=== PATIENT | female | born 1950 | race Caucasian/White ===

== ENCOUNTER 2021-10-11 21:22 | Inpatient (IN) | payer MEDICARE, OTHER ==
[~2021-10-11] VITALS: Ht 157.5 cm; Wt 42.6 kg
[2021-10-11] MEDS ORDERED: IPRATROPIUM BROMIDE 0.5 MG/2.5 ML NEBU NEB ONE (21:30)
[2021-10-11] MEDS ORDERED: ALBUTEROL SULFATE 2.5 MG/3 ML NEBU NEB ONE (21:30)
[2021-10-11] MEDS ORDERED: methylPREDNISolone SOD SUCC 125 MG/2 ML VIAL IV ONE (21:30)
--- NOTE | 2021-10-11 21:32 | NUR ---
BIB RA 39 [place] SOB on 15L. Pt now on 2L NC satting at 98%. No distress noted.
[2021-10-11] MEDS ORDERED: ALBU8.5H8 INH (21:35)
[2021-10-11] MEDS ORDERED: ONDA4TAB5 PO (21:39)
[2021-10-11] MEDS ORDERED: MULT-594 PO (21:39)
[2021-10-11] MEDS ORDERED: HYDR-894 PO (21:39)
[2021-10-11] MEDS ORDERED: CYAN100T44 PO (21:39)
[2021-10-11] MEDS ORDERED: FLUT1BLS6 IH (21:39)
[2021-10-11] MEDS ORDERED: ACET250T3 PO (21:39)
[2021-10-11] MEDS ORDERED: FAMO20TA8 PO (21:39)
[2021-10-11] MEDS ORDERED: CALC-764 PO (21:39)
[2021-10-11] MEDS ORDERED: SILD50TA PO (21:39)
[2021-10-11] MEDS ORDERED: POTA10CA43 PO (21:39)
[2021-10-11] MEDS ORDERED: ALBUTEROL SULFATE 2.5 MG/3 ML NEBU ONE ×2 (21:39→22:51)
[2021-10-11] MEDS ORDERED: IPRATROPIUM BROMIDE 0.5 MG/2.5 ML NEBU ONE (21:39)
[2021-10-11] MEDS ORDERED: IV NORMAL SALINE 1000 ML BAG IV ONE (21:45)
--- NOTE | 2021-10-11 21:50 | NUR ---
RT at bedside administering nebulizer treatment and doing ABG
[2021-10-11] MEDS ORDERED: methylPREDNISolone SOD SUCC 125 MG/2 ML VIAL ONE (21:51)
[2021-10-11 22:03] LABS: CARBON DIOXIDE 31 mmol/L (21-32); CHLORIDE 101 mmol/L (98-107); CREATININE 0.6 mg/dL (0.6-1.3); GLUCOSE 132 mg/dL (74-106); UREA NITROGEN, BLOOD 19 mg/dL (7-18)
[2021-10-11 22:06] LABS: HEMATOCRIT 34.7 % (31.2-41.9); MEAN CORPUSCULAR HEMOGLOBIN 30.9 uug (24.7-32.8); MEAN CORPUSCULAR VOLUME 92.6 fL (75.5-95.3); PLATELET COUNT (AUTO) 380 K/uL (179-408)
[2021-10-11 22:15] LABS: ALANINE AMINOTRANSFERASE 26 U/L (14-59); ALKALINE PHOSPHATASE 204 U/L (50-136); ASPARTATE AMINOTRANSFERASE 14 U/L (15-37); BILIRUBIN,DIRECT 0.1 mg/dL (0.0-0.2); BILIRUBIN,TOTAL 0.3 mg/dL (0.2-1.0); TOTAL PROTEIN, SERUM 7.5 g/dL (6.4-8.2)
[2021-10-11 22:26] LABS: ABG BASE EXCESS -4.5 mmol/L; ABG HCO3 26.1 mmol/L; ABG PCO2 79.7 mmHg (35.0-45.0); ABG PH 7.133 (7.350-7.450); ABG PO2 145.4 mmHg (75.0-100.0); ABG SITE LEFT RADIAL; ABG TOTAL HEMOGLOBIN 12.1 G/dL (12.0-16.0); COHb 0.3 % (0.5-1.5); MetHb 0.3 % (0.0-1.5); O2Hb 98.1 % (94.0-97.0); VENT MODE Nasal Cannula
--- NOTE | 2021-10-11 22:30 | NUR ---
O2 saturation dropped to 70% on 2L. Placed on 10L NRM, now satting 96%.
--- NOTE | 2021-10-11 22:35 | NUR ---
CO2 of 79.7 on ABG, orders for bipap
--- NOTE | 2021-10-11 22:43 | NUR ---
RT here placing patient on bipap
--- NOTE | 2021-10-11 22:53 | NUR ---
Pt refusing bipap at this time
[2021-10-11] MEDS ORDERED: ALBUTEROL SULFATE 2.5 MG/ 0.5 ML NEBU NEB ONE (23:00)
[2021-10-11] MEDS ORDERED: ENOXAPARIN SODIUM 40 MG/0.4 ML DISP.SYRIN SQ ONE ×2 (23:02→23:15)
--- NOTE | 2021-10-11 23:51 | NUR ---
Called [facility] to page Dr. Ji Brownlee.
[2021-10-12] VITALS (11 sets, daily range): BP systolic 106–170; BP diastolic 67–100
--- NOTE | 2021-10-12 00:02 | NUR ---
Called [facility] to page Alexey Nieto NP.
--- NOTE | 2021-10-12 00:31 | NUR ---
Dr. Daugherty on panel call with Alexey Nieto NP.
--- NOTE | 2021-10-12 01:07 | NUR ---
Alexey Nieto JUNIOR UNDERWRITER at bedside
--- NOTE | 2021-10-12 01:32 | NUR ---
Pt allowing bipap placement. Tolerating well at this time.
[2021-10-12] MEDS ORDERED: ALBUTEROL SULFATE 2.5 MG/ 0.5 ML NEBU NEB ONE (02:15)
[2021-10-12] MEDS ORDERED: ALBUTEROL SULFATE 2.5 MG/ 0.5 ML NEBU ONE (02:17)
[2021-10-12] MEDS ORDERED: methylPREDNISolone SOD SUCC 40 MG/ML VIAL IV SCH (02:45)
[2021-10-12] MEDS ORDERED: HYDROCODONE/APAP 5-325MG TABLET PO PRN (02:45)
[2021-10-12] MEDS ORDERED: levoFLOXacin 750MG/D5W 750 MG in PREMIXED 1 EACH IV SCH (02:45)
[2021-10-12] MEDS ORDERED: ENOXAPARIN SODIUM 40 MG/0.4 ML DISP.SYRIN SQ SCH (02:45)
[2021-10-12] MEDS ORDERED: REMEDY ESSENTIAL ZINC PASTE 113 GM TP PRN (02:45)
[2021-10-12] MEDS ORDERED: ACETAMINOPHEN 325 MG TABLET PO PRN (02:45)
[2021-10-12] MEDS ORDERED: ONDANSETRON 4 MG/2 ML VIAL IV PRN (02:45)
[2021-10-12] MEDS ORDERED: MAGNESIUM HYDROXIDE 30 ML LIQUID UDC PO PRN (02:45)
[2021-10-12 03:13] LABS: ABG BASE EXCESS -4.6 mmol/L; ABG HCO3 27.6 mmol/L; ABG PCO2 96.4 mmHg (35.0-45.0); ABG PH 7.075 (7.350-7.450); ABG PO2 210.4 mmHg (75.0-100.0); ABG SITE LEFT RADIAL; ABG TOTAL HEMOGLOBIN 12.8 G/dL (12.0-16.0); COHb 0.2 % (0.5-1.5); MetHb 0.6 % (0.0-1.5); O2Hb 98.5 % (94.0-97.0); VENT MODE BIPAP 15/5
[2021-10-12] MEDS ORDERED: levoFLOXacin 750MG/D5W 150 ML IV ONE (03:14)
[2021-10-12] MEDS ORDERED: CEFTRIAXONE /D5W 50ML IVPB **ER PYXIS IV ONE (03:14)
[2021-10-12] MEDS ORDERED: methylPREDNISolone SOD SUCC 40 MG/ML VIAL ONE ×3 (03:14→18:03)
[2021-10-12] MEDS ORDERED: CEFTRIAXONE 1 G in IV DEXTROSE 5% 50 ML IV ONE (03:15)
--- NOTE | 2021-10-12 03:24 | NUR ---
Pts diaper is soiled with urine, refusing to be changed at this time.
--- NOTE | 2021-10-12 05:50 | NUR ---
Bed bath given to patient
[2021-10-12] MEDS ORDERED: PANTOPRAZOLE SODIUM 40 MG TABLET.DR PO SCH (07:00)
--- NOTE | 2021-10-12 07:15 | NUR ---
Report received from Rachna Alvarado Received pt. on bipap 15/5 Rate of 28 and 60% FIO2. saturation of 10%. Based on reports of last ABG will titrate down FIO2. Patient on Sinus rhythm sbp within desired limits. NPO for now until off bipap for safety and aspiration precautions RAC G18 patent. Paitent AAOX2. Will continue with care plan.
[2021-10-12] MEDS ORDERED: ALBUTEROL SULFATE 2.5 MG/3 ML NEBU ONE ×4 (07:16→20:20)
[2021-10-12] MEDS ORDERED: IPRATROPIUM BROMIDE 0.5 MG/2.5 ML NEBU ONE ×4 (07:16→20:21)
[2021-10-12] MEDS: ALBUTEROL SULFATE 2.5 MG/3 ML NEBU NEB SCH ×4 (07:18→20:22)
[2021-10-12] MEDS: IPRATROPIUM BROMIDE 0.5 MG/2.5 ML NEBU NEB SCH ×4 (07:19→20:22)
--- NOTE | 2021-10-12 09:10 | NUR ---
Pt's DPOA called and she was updated after she faxed legal documentation, to the unit.
--- NOTE | 2021-10-12 10:16 | NUR ---
Attending called to report consistently high SBP awaiting orders. Addendum: 10/12/21 at 1017 by JUAN DIEGO NEWELL RN Awaiting call back.
[2021-10-12] MEDS ORDERED: CLONIDINE-TTS 1 PATCH TD SCH (10:30)
[2021-10-12] MEDS: PANTOPRAZOLE SODIUM 40 MG VIAL IV SCH (10:31)
[2021-10-12] MEDS ORDERED: PANTOPRAZOLE SODIUM 40 MG VIAL ONE (10:34)
[2021-10-12] MEDS ORDERED: CLONIDINE-TTS 1 PATCH TD ONE (10:34)
[2021-10-12] MEDS: methylPREDNISolone SOD SUCC 40 MG/ML VIAL IV SCH ×2 (10:35→18:04)
[2021-10-12] MEDS ORDERED: METOPROLOL TARTRATE 5 MG/5 ML VIAL IVP ONE (13:12)
[2021-10-12] MEDS: METOPROLOL TARTRATE 5 MG/5 ML VIAL IVP PRN (13:13)
--- NOTE | 2021-10-12 16:00 | NUR ---
PRN po anti-hypertensive medication given pt. did not tolerate well been off bipap desaturation down to the 70's observed, with severe shortness of breath.
[2021-10-12] MEDS: hydrALAZINE HCL 25 MG TABLET PO PRN (16:18)
[2021-10-12] MEDS ORDERED: hydrALAZINE HCL 25 MG TABLET ONE (16:21)
[2021-10-12] MEDS ORDERED: SILDENAFIL 20 MG TABLET PO ONE (17:00)
[2021-10-12] MEDS: ACETAzolamide 250 MG TABLET PO SCH (17:11)
--- NOTE | 2021-10-12 17:12 | NUR ---
po meds non-administered. patient unable to off bipap.
--- NOTE | 2021-10-12 17:55 | NUR ---
Attending physician Dr. Hopper, in the unit to see and examine pt. report given . Addendum: 10/12/21 at 1801 by JUAN DIEGO NEWELL RN At this time informed that DPO faxed the DNR/DNI documentation and that She as DPOA wants to honor pt's wishes. as stated earlier in a received from her. spoke with pt. and One more time patient stated "I changed my mind" and I want you to do everything to keep me alive. Addendum: 10/12/21 at 1801 by JUAN DIEGO NEWELL RN orders to continue with full code status.
--- NOTE | 2021-10-12 18:39 | NUR ---
Left pt. AAOX3. vitals stable no c/of pain Hemodynamically stable on NSR, sbp within desired limits. On BIPAP 15/5 Rate of 28 and FIO2 of 30%. saturation above 95%. Remains unable to lie flat. IV access patent. Will endorse to incoming shift.
[2021-10-12] MEDS ORDERED: ENOXAPARIN SODIUM 40 MG/0.4 ML DISP.SYRIN SQ ONE (21:01)
[2021-10-12] MEDS: ENOXAPARIN SODIUM 40 MG/0.4 ML DISP.SYRIN SQ SCH (21:04)
[2021-10-13] VITALS (12 sets, daily range): BP systolic 114–175; BP diastolic 55–95
[2021-10-13] MEDS: levoFLOXacin 750MG/D5W 750 MG in PREMIXED 1 EACH IV SCH (03:05)
[2021-10-13] MEDS ORDERED: methylPREDNISolone SOD SUCC 40 MG/ML VIAL ONE ×3 (03:06→18:12)
[2021-10-13] MEDS: methylPREDNISolone SOD SUCC 40 MG/ML VIAL IV SCH ×3 (03:09→18:20)
[2021-10-13 05:25] LABS: HEMATOCRIT 32.2 % (31.2-41.9); MEAN CORPUSCULAR HEMOGLOBIN 30.9 uug (24.7-32.8); MEAN CORPUSCULAR VOLUME 91.7 fL (75.5-95.3); PLATELET COUNT (AUTO) 391 K/uL (179-408)
[2021-10-13 05:39] LABS: BILIRUBIN,TOTAL 0.2 mg/dL (0.2-1.0); CREATININE 0.7 mg/dL (0.6-1.3); MAGNESIUM 1.9 mg/dL (1.8-2.4); PHOSPHOROUS 2.6 mg/dL (2.5-4.9); POTASSIUM 3.7 mmol/L (3.5-5.1); TOTAL PROTEIN, SERUM 6.9 g/dL (6.4-8.2)
[2021-10-13 05:49] LABS: THYROID STIMULATING HORMONE 0.877 mIU/mL (0.358-3.740)
[2021-10-13] MEDS: ACETAzolamide 250 MG TABLET PO SCH ×5 (06:00→23:13)
--- NOTE | 2021-10-13 06:21 | NUR ---
PATIENT CURRENTLY ON BIPAP 15/5 BUR 28, 30% FIO2 AND TOLERATING WELL. NO SOB NOTED WHILE ON BIPAP. REMOVED FOR READJUSTMENT AND DESATS IMMEDIATELY. INLINE TREATMENT ORDERS REVIEWED AND ADMINISTERED WITHOUT COMPLICATIONS. PATIENT IS DNR STATUS WITH OK TO INTUBATE IF SHE BECOMES UNCONSCIOUS. PATIENT IS AWAKE AND ALERT. BIPAP PLUGGED IN TO RED OUTLET/ ALARMS ON/AUDIBLE.
--- NOTE | 2021-10-13 06:58 | NUR ---
Bedside report received from Rachna Camarillo according to report pt's night went uneventful,with heart rate sinus tachycardia in the 100-115. Orders to down-grade pt. to telemetry status received.
[2021-10-13] MEDS ORDERED: IPRATROPIUM BROMIDE 0.5 MG/2.5 ML NEBU ONE ×4 (07:48→19:18)
[2021-10-13] MEDS ORDERED: ALBUTEROL SULFATE 2.5 MG/3 ML NEBU ONE ×4 (07:48→19:18)
[2021-10-13] MEDS: ALBUTEROL SULFATE 2.5 MG/3 ML NEBU NEB SCH ×4 (07:49→19:26)
[2021-10-13] MEDS: IPRATROPIUM BROMIDE 0.5 MG/2.5 ML NEBU NEB SCH ×4 (07:49→19:26)
[2021-10-13] MEDS ORDERED: PANTOPRAZOLE SODIUM 40 MG VIAL ONE (08:22)
[2021-10-13] MEDS: PANTOPRAZOLE SODIUM 40 MG VIAL IV SCH (08:23)
[2021-10-13] MEDS: SILDENAFIL 20 MG TABLET PO SCH ×3 (08:23→17:00)
[2021-10-13] MEDS ORDERED: SILDENAFIL 20 MG TABLET PO SCH (09:00)
--- NOTE | 2021-10-13 09:04 | NUR ---
Patient care endorse to rn. Weber who will continue with care jacy.
--- NOTE | 2021-10-13 10:44 | NUR ---
Pulmonary services, Dr. Driscoll in the unit to see and examine pt. report given see order hx.
--- NOTE | 2021-10-13 12:00 | NUR ---
After ABG results in pt. taken off bipap and placed on NC 2 liters saturation of 95%. some respiratory effort noted., will continue to monitor.
--- NOTE | 2021-10-13 12:10 | NUR ---
Patient off bipap at this time and placed on NC.2L with saturation of 92%. Breathing tx prn.
[2021-10-13 12:16] LABS: ABG BASE EXCESS 1.7 mmol/L; ABG HCO3 27.1 mmol/L; ABG PCO2 45.9 mmHg (35.0-45.0); ABG PH 7.389 (7.350-7.450); ABG PO2 86.3 mmHg (75.0-100.0); ABG SITE LEFT BRACHIAL; COHb 0.3 % (0.5-1.5); MetHb 0.3 % (0.0-1.5); O2Hb 96.6 % (94.0-97.0); VENT MODE BIPAP
[2021-10-13] MEDS ORDERED: ACETAzolamide 250 MG TABLET ONE ×3 (14:28→22:56)
--- NOTE | 2021-10-13 14:50 | NUR ---
From 1450 to 1515 patient with sustained sinus tachycardia in the high 130-139. with c/of sob. BT given ekg obtained and notified to attending.
--- NOTE | 2021-10-13 14:57 | NUR ---
Bedside report given to nursing fertilizer processing supervisor Yunier.
[2021-10-13] MEDS ORDERED: METOPROLOL TARTRATE 5 MG/5 ML VIAL IVP ONE (15:12)
[2021-10-13] MEDS ORDERED: HYDROCODONE/APAP 5-325MG TABLET ONE (15:13)
[2021-10-13] MEDS: METOPROLOL TARTRATE 5 MG/5 ML VIAL IVP PRN (15:15)
--- NOTE | 2021-10-13 15:30 | NUR ---
A call back from attending report given and orders to transfer pt. back to ICU status received. Nursing wet end supervisor notified.
--- NOTE | 2021-10-13 19:00 | NUR ---
Received report. Patient is awake, A/Ox4, watching tv, madrigal's position. Denies pain at this time. No signs of acute distress noted. VSS. IV site patent and flushed. No erythema, bleeding or infiltration noted. Bed at lowest position, brakes on, siderails x3. Call light within reach. Will continue to monitor closely.
--- NOTE | 2021-10-13 19:14 | NUR ---
Bedside report given to karlos Galicia
--- NOTE | 2021-10-13 20:20 | NUR ---
Dr Workman at bedside, report given.
[2021-10-13] MEDS ORDERED: ENOXAPARIN SODIUM 40 MG/0.4 ML DISP.SYRIN SQ ONE (20:36)
[2021-10-13] MEDS: ENOXAPARIN SODIUM 40 MG/0.4 ML DISP.SYRIN SQ SCH (20:41)
--- NOTE | 2021-10-13 23:15 | NUR ---
HR 120. NAD. Called [facility] exchange and spoke with Dr Workman re: patient's condition. Per Dr. Workman, ok to place on bipap machine I:E 15, R28, FiO2 25%. Noted and carried out.
--- NOTE | 2021-10-13 23:27 | NUR ---
Placed patient on bipap machine c/o RT, tolerating well, O2 sat 96, HR. 87.
[2021-10-14] VITALS (15 sets, daily range): BP systolic 117–155; BP diastolic 71–88
--- NOTE | 2021-10-14 | NUR ---
Patient wants bipap machine to be removed. Called RT Amie re: patient's request. Bipap mask removed c/o RT Amie, tolerating well, O2 sat 94%, HR 90. Will continue to monitor closely.
[2021-10-14] MEDS ORDERED: LEVOFLOXACIN IV ONE (01:47)
[2021-10-14] MEDS ORDERED: [UNRECOGNIZED DRUG - OTHER] IV ONE (01:47)
[2021-10-14] MEDS ORDERED: methylPREDNISolone SOD SUCC 40 MG/ML VIAL ONE ×3 (01:47→16:15)
[2021-10-14] MEDS: methylPREDNISolone SOD SUCC 40 MG/ML VIAL IV SCH ×3 (02:09→19:41)
[2021-10-14] MEDS: levoFLOXacin 750MG/D5W 750 MG in PREMIXED 1 EACH IV SCH (02:10)
--- NOTE | 2021-10-14 03:19 | NUR ---
AM care done. Linen changed.
[2021-10-14 04:48] LABS: MEAN CORPUSCULAR HEMOGLOBIN 30.9 uug (24.7-32.8); MEAN CORPUSCULAR VOLUME 91.5 fL (75.5-95.3); PLATELET COUNT (AUTO) 429 K/uL (179-408)
[2021-10-14 05:03] LABS: CREATININE 0.7 mg/dL (0.6-1.3); MAGNESIUM 2.1 mg/dL (1.8-2.4); PHOSPHOROUS 2.7 mg/dL (2.5-4.9); POTASSIUM 3.7 mmol/L (3.5-5.1)
[2021-10-14] MEDS ORDERED: ACETAzolamide 250 MG TABLET ONE ×3 (06:00→16:15)
[2021-10-14] MEDS: ACETAzolamide 250 MG TABLET PO SCH ×3 (06:04→17:09)
--- NOTE | 2021-10-14 07:00 | NUR ---
Received patient alert/orientedx4, on 2L via NC saturating at 93%. No distress identified. On high fowlers position. Iv intact and patent to the IVETH. will continue to monitor.
[2021-10-14 07:26] LABS: ABG BASE EXCESS 2.3 mmol/L; ABG HCO3 28.1 mmol/L; ABG PCO2 49.1 mmHg (35.0-45.0); ABG PH 7.376 (7.350-7.450); ABG PO2 65.5 mmHg (75.0-100.0); ABG SITE RIGHT RADIAL; ABG TOTAL HEMOGLOBIN 11.9 G/dL (12.0-16.0); COHb 0.3 % (0.5-1.5); MetHb 0.1 % (0.0-1.5); O2Hb 92.9 % (94.0-97.0); VENT MODE VENT - A/C
--- NOTE | 2021-10-14 07:30 | NUR ---
ABG done as ordered. Seen by Dr Driscoll.
[2021-10-14] MEDS ORDERED: IPRATROPIUM BROMIDE 0.5 MG/2.5 ML NEBU ONE ×3 (07:32→14:46)
[2021-10-14] MEDS ORDERED: ALBUTEROL SULFATE 2.5 MG/3 ML NEBU ONE ×3 (07:32→14:46)
[2021-10-14] MEDS: IPRATROPIUM BROMIDE 0.5 MG/2.5 ML NEBU NEB SCH ×4 (07:35→21:08)
[2021-10-14] MEDS: ALBUTEROL SULFATE 2.5 MG/3 ML NEBU NEB SCH ×4 (07:35→21:09)
--- NOTE | 2021-10-14 07:37 | NUR ---
PT RECEIVED AWAKE ALERT RESPONSIVE SHOWING NO SIGNS OF DISORIENTATION. PT SHOWS NO S/S OF RESP DISTRESS. ROUTINE ABG PERFORMED, RESULTS NON CRITICAL. ABG DONE WAS 2 LPM NASAL CANULA. BIPAP ON STAND BY. WILL CONTINUE TO MONITOR
[2021-10-14] MEDS ORDERED: PANTOPRAZOLE SODIUM 40 MG VIAL ONE (07:51)
[2021-10-14] MEDS: PANTOPRAZOLE SODIUM 40 MG VIAL IV SCH (09:02)
[2021-10-14] MEDS: SILDENAFIL 20 MG TABLET PO SCH ×3 (09:15→16:54)
[2021-10-14] MEDS: ENSURE ENLIVE (VAN) 240 ML LIQUID PO SCH (13:07)
--- NOTE | 2021-10-14 17:37 | NUR ---
MD order transfer Tele. Transferred to [place] per order. Patient is stable. Sinus on monitor. VS WNL. no distress noted.
--- NOTE | 2021-10-14 17:40 | NUR ---
Patient transferred to [place] floor per supervisor concrete stone finishing advised. Nurse at the floor was informed.
--- NOTE | 2021-10-14 18:46 | NUR ---
Report given to the receiving RN.
--- NOTE | 2021-10-14 18:47 | NUR ---
Received this transfer from CCU. Alert, oriented x 4. O2 at 2L/NC with O2 sat of 97%. Titrated to 1/NC. Not in distress. Tele -.
[2021-10-14] MEDS: ATORVASTATIN 10 MG TABLET PO SCH (20:52)
[2021-10-14] MEDS: ENOXAPARIN SODIUM 40 MG/0.4 ML DISP.SYRIN SQ SCH (20:52)
[2021-10-15] VITALS: BP 129/77
[2021-10-15] MEDS ORDERED: ACETAzolamide 250 MG TABLET ONE ×2 (01:02→01:03)
[2021-10-15] MEDS: ACETAzolamide 250 MG TABLET PO SCH ×4 (01:25→17:50)
[2021-10-15] MEDS: levoFLOXacin 750MG/D5W 750 MG in PREMIXED 1 EACH IV SCH (03:06)
[2021-10-15] MEDS: methylPREDNISolone SOD SUCC 40 MG/ML VIAL IV SCH ×3 (03:07→20:56)
[2021-10-15 04:00] VITALS: BP 140/65
[2021-10-15] MEDS: IPRATROPIUM BROMIDE 0.5 MG/2.5 ML NEBU NEB SCH ×4 (06:02→19:10)
[2021-10-15] MEDS: ALBUTEROL SULFATE 2.5 MG/3 ML NEBU NEB SCH ×4 (06:03→19:10)
[2021-10-15 06:56] LABS: HEMATOCRIT 32.6 % (31.2-41.9); MEAN CORPUSCULAR HEMOGLOBIN 30.6 uug (24.7-32.8); MEAN CORPUSCULAR VOLUME 91.6 fL (75.5-95.3); PLATELET COUNT (AUTO) 379 K/uL (179-408)
--- NOTE | 2021-10-15 07:01 | NUR ---
Slept intermittently during the night, no acute distress noted. HOB kept elevated with O2 inhalation @ 1L/min via nc. IVETH midline intact and patent. Needs assessed and attended to. Call light placed within easy reach.
[2021-10-15 07:09] LABS: ALANINE AMINOTRANSFERASE 22 U/L (14-59); ALKALINE PHOSPHATASE 141 U/L (50-136); ASPARTATE AMINOTRANSFERASE 16 U/L (15-37); BILIRUBIN,TOTAL 0.3 mg/dL (0.2-1.0); CARBON DIOXIDE 28 mmol/L (21-32); CHLORIDE 101 mmol/L (98-107); CREATININE 0.7 mg/dL (0.6-1.3); GLUCOSE 126 mg/dL (74-106); MAGNESIUM 2.2 mg/dL (1.8-2.4); PHOSPHOROUS 3.3 mg/dL (2.5-4.9); POTASSIUM 3.7 mmol/L (3.5-5.1); TOTAL PROTEIN, SERUM 6.7 g/dL (6.4-8.2); UREA NITROGEN, BLOOD 35 mg/dL (7-18)
[2021-10-15] MEDS ORDERED: POTASSIUM CHLORIDE 20 MEQ TAB.PRT.SR PO ONE (09:00)
[2021-10-15] MEDS: PANTOPRAZOLE SODIUM 40 MG VIAL IV SCH (09:08)
[2021-10-15] MEDS: SILDENAFIL 20 MG TABLET PO SCH ×3 (09:08→16:48)
[2021-10-15] MEDS: ENSURE ENLIVE (VAN) 240 ML LIQUID PO SCH (09:08)
[2021-10-15 12:00] VITALS: BP 153/69
--- NOTE | 2021-10-15 18:13 | NUR ---
Patient remained stable. no distress noted. on continuous o2. kept call light within reach. all needs attended. will endorse for continuity of care.
--- NOTE | 2021-10-15 18:47 | NUR ---
Patient requested her POLST to be full code. New POLST in chart and signed by the MD.
--- NOTE | 2021-10-15 18:48 | NUR ---
Remained Sinus tachy during the shift. no respiratory distress noted. will endorse.
[2021-10-15 20:00] VITALS: BP 151/70
[2021-10-15] MEDS: ATORVASTATIN 10 MG TABLET PO SCH (20:56)
[2021-10-15] MEDS: ENOXAPARIN SODIUM 40 MG/0.4 ML DISP.SYRIN SQ SCH (20:58)
[2021-10-16] VITALS: BP 145/75
[2021-10-16] MEDS: ACETAzolamide 250 MG TABLET PO SCH ×4 (00:55→17:28)
[2021-10-16] MEDS: levoFLOXacin 750MG/D5W 750 MG in PREMIXED 1 EACH IV SCH (02:25)
--- NOTE | 2021-10-16 03:50 | NUR ---
PATIENT RECEIVED ON 1 L N/C WITH NO S/S OF RESP. DISTRESS NOTED. INLINE TREATMENTS REVIEWED AND ADMINISTERED ORDERED. TX TOLERATED WELL, NO ADVERSE REACTIONS NOTED. BIPAP ORDERS REVIEWED, PATIENT STATES SHE HAS NOT USED IT IN A FEW NIGHT AND WILL NOT BE REQUIRING IT TONIGHT. RISK AND BENEFITS EXPLAINED X3. V/S WITHIN NORMAL LIMITS. NO SOB NOTED. PATIENT AWAKE/ALERT. WILL CONTINUE TO MONITOR.
[2021-10-16 06:30] LABS: HEMATOCRIT 34.2 % (31.2-41.9); MEAN CORPUSCULAR HEMOGLOBIN 30.7 uug (24.7-32.8); MEAN CORPUSCULAR VOLUME 91.2 fL (75.5-95.3); PLATELET COUNT (AUTO) 413 K/uL (179-408)
[2021-10-16 06:49] LABS: CREATININE 0.7 mg/dL (0.6-1.3); MAGNESIUM 1.9 mg/dL (1.8-2.4); PHOSPHOROUS 2.6 mg/dL (2.5-4.9); POTASSIUM 4.1 mmol/L (3.5-5.1)
[2021-10-16] MEDS: IPRATROPIUM BROMIDE 0.5 MG/2.5 ML NEBU NEB SCH ×4 (07:30→19:54)
[2021-10-16] MEDS: ALBUTEROL SULFATE 2.5 MG/3 ML NEBU NEB SCH ×4 (07:30→19:54)
[2021-10-16] MEDS: PANTOPRAZOLE SODIUM 40 MG VIAL IV SCH (08:13)
[2021-10-16] MEDS: methylPREDNISolone SOD SUCC 40 MG/ML VIAL IV SCH ×2 (08:13→21:00)
[2021-10-16] MEDS: SILDENAFIL 20 MG TABLET PO SCH ×3 (08:26→16:00)
[2021-10-16] MEDS: ENSURE ENLIVE (VAN) 240 ML LIQUID PO SCH (08:26)
[2021-10-16] MEDS: hydrALAZINE HCL 25 MG TABLET PO PRN (08:27)
[2021-10-16] MEDS ORDERED: NORMAL SALINE NASAL 45 ML BOTTLE NS PRN (09:15)
[2021-10-16 11:55] VITALS: BP 118/72
[2021-10-16 16:13] VITALS: BP 139/69
[2021-10-16] MEDS ORDERED: ACET325T53 PO (18:51)
[2021-10-16] MEDS ORDERED: IPRA0.2S6 NEB (18:51)
[2021-10-16] MEDS ORDERED: METH4TAB3 PO (18:51)
[2021-10-16] MEDS ORDERED: MENT113O TP (18:51)
[2021-10-16] MEDS ORDERED: Lactose-Free Food PO (18:51)
[2021-10-16] MEDS ORDERED: CLON1PAT TD (18:51)
[2021-10-16] MEDS ORDERED: ALBU2.5V7 NEB (18:51)
[2021-10-16] MEDS ORDERED: ATOR10TA PO (18:51)
--- NOTE | 2021-10-16 18:59 | NUR ---
Remained stable during the shift. no distress noted. Patient will be dc to [facility] today. Report given to NADJA Sheppard. Ambulance shredder picker was set to 11pm. All needs attended. Will endorse to the next shift for continuity of care.
[2021-10-16 20:00] VITALS: BP 130/70
--- NOTE | 2021-10-16 20:50 | NUR ---
Patient discharged to [facility] via [facility], transported by [facility]. Patient left in stable condition, awake alert and oriented x 3, in no acute distress, on O2 inhalation @ 1L/min via nc. Discharged papers signed. Patient admitted with no belongings.
[2021-10-16] MEDS: ENOXAPARIN SODIUM 40 MG/0.4 ML DISP.SYRIN SQ SCH (21:00)
[2021-10-16] MEDS: ATORVASTATIN 10 MG TABLET PO SCH (21:00)
== END 2021-10-16 20:55 | DRG 189 ==
LOC: ER 21:22 → TRANSITION 10-12 06:54 → TELE3 10-14 17:39 → MEDSURG3 10-16 08:35
PROVIDERS: ADMIT Nurse Practitioner Family; ATTEND Nurse Practitioner Family
PROC: 5A09457 Assistance with Respiratory Ventilation, 24-96 Consecutive Hours, Continuous Positive Airway Pressure (ICD-10-PCS; principal; 2021-10-12)
PROC: 05H933Z Insertion of Infusion Device into Right Brachial Vein, Percutaneous Approach (ICD-10-PCS; 2021-10-12)
DX: J96.21 Acute and chronic respiratory failure with hypoxia (principal); E87.1 Hypo-osmolality and hyponatremia; D68.59 Other primary thrombophilia; E44.1 Mild protein-calorie malnutrition; Z68.1 Body mass index [BMI] 19.9 or less, adult; R64 Cachexia; J43.9 Emphysema, unspecified; J96.22 Acute and chronic respiratory failure with hypercapnia; E78.5 Hyperlipidemia, unspecified; R73.9 Hyperglycemia, unspecified; R79.89 Other specified abnormal findings of blood chemistry; Z79.899 Other long term (current) drug therapy; D64.9 Anemia, unspecified; Z99.81 Dependence on supplemental oxygen; Z74.09 Other reduced mobility; J84.10 Pulmonary fibrosis, unspecified; I27.20 Pulmonary hypertension, unspecified; I10 Essential (primary) hypertension; Z87.891 Personal history of nicotine dependence; Z20.822 Contact with and (suspected) exposure to COVID-19; R00.0 Tachycardia, unspecified
CPT/HCPCS: 36415; 36600; 71045; 83605; 83735; 84100; 84443; 84484; 85025; 85730; 87040; 87400; 93005; 93307; 94640; 94660; 94664; 97161; 99082-TC; A6209; C9113; G0378; J0696; J1650; J1956; J2920; J2930; J3490; J3590; J7040; J8499